=== PATIENT | male | born 1965 ===

== ENCOUNTER → 2023-10-18 | Outpatient (CLI) | payer SELFPAY | LOC: LAB 11:32 → LAB SHORT 11:32 | DX: R30.0 Dysuria (principal) | CPT/HCPCS: 87086 ==

== ENCOUNTER 2025-02-20 01:34 | Day surgery (SDC) | payer OTHER ==
[2025-02-20] MEDS ORDERED: Lidocaine HCl 4% Cream 5 GM ONE (08:14)
== END 2025-02-20 23:00 | disposition home or self-care (01) ==
LOC: WOUND 01:34
DX: E11.621 Type 2 diabetes mellitus with foot ulcer (principal); L97.515 Non-pressure chronic ulcer of other part of right foot with muscle involvement without evidence of necrosis; L97.525 Non-pressure chronic ulcer of other part of left foot with muscle involvement without evidence of necrosis; E11.40 Type 2 diabetes mellitus with diabetic neuropathy, unspecified; E11.51 Type 2 diabetes mellitus with diabetic peripheral angiopathy without gangrene; I87.2 Venous insufficiency (chronic) (peripheral); D58.9 Hereditary hemolytic anemia, unspecified; Z79.4 Long term (current) use of insulin; Z79.84 Long term (current) use of oral hypoglycemic drugs; Z85.038 Personal history of other malignant neoplasm of large intestine; Z93.2 Ileostomy status
CPT/HCPCS: A9270; G0463

== ENCOUNTER 2025-02-25 00:21 | Day surgery (SDC) | payer OTHER ==
[2025-02-25] MEDS ORDERED: Lidocaine HCl 4% Cream 5 GM ONE (08:56)
== END 2025-02-25 23:00 | disposition home or self-care (01) ==
LOC: WOUND 00:21
DX: E11.621 Type 2 diabetes mellitus with foot ulcer (principal); L97.415 Non-pressure chronic ulcer of right heel and midfoot with muscle involvement without evidence of necrosis; L97.525 Non-pressure chronic ulcer of other part of left foot with muscle involvement without evidence of necrosis; E11.40 Type 2 diabetes mellitus with diabetic neuropathy, unspecified; Z93.2 Ileostomy status
CPT/HCPCS: A9270; G0463

== ENCOUNTER 2025-03-04 03:19 | Day surgery (SDC) | payer OTHER ==
[2025-03-04] MEDS ORDERED: Lidocaine HCl 4% Cream 5 GM ONE (13:18)
== END 2025-03-04 23:00 | disposition home or self-care (01) ==
LOC: WOUND 03:19
DX: E11.621 Type 2 diabetes mellitus with foot ulcer (principal); L97.415 Non-pressure chronic ulcer of right heel and midfoot with muscle involvement without evidence of necrosis; L97.525 Non-pressure chronic ulcer of other part of left foot with muscle involvement without evidence of necrosis; E11.40 Type 2 diabetes mellitus with diabetic neuropathy, unspecified; Z93.2 Ileostomy status; Z85.038 Personal history of other malignant neoplasm of large intestine
CPT/HCPCS: A9270

== ENCOUNTER 2025-03-11 00:46 | Day surgery (SDC) | payer OTHER ==
[2025-03-11] MEDS ORDERED: Lidocaine HCl 4% Cream 5 GM ONE (12:59)
== END 2025-03-11 23:00 | disposition home or self-care (01) ==
LOC: WOUND 00:46
DX: E11.621 Type 2 diabetes mellitus with foot ulcer (principal); E11.40 Type 2 diabetes mellitus with diabetic neuropathy, unspecified; L97.413 Non-pressure chronic ulcer of right heel and midfoot with necrosis of muscle; L97.513 Non-pressure chronic ulcer of other part of right foot with necrosis of muscle; L97.522 Non-pressure chronic ulcer of other part of left foot with fat layer exposed; Z93.2 Ileostomy status
CPT/HCPCS: A9270

== ENCOUNTER 2025-03-18 01:54 | Day surgery (SDC) | payer OTHER ==
[2025-03-18] MEDS ORDERED: Lidocaine HCl 4% Cream 5 GM ONE (14:34)
== END 2025-03-18 23:00 | disposition home or self-care (01) ==
LOC: WOUND 01:54
DX: E11.621 Type 2 diabetes mellitus with foot ulcer (principal); L97.515 Non-pressure chronic ulcer of other part of right foot with muscle involvement without evidence of necrosis; L97.525 Non-pressure chronic ulcer of other part of left foot with muscle involvement without evidence of necrosis; E11.40 Type 2 diabetes mellitus with diabetic neuropathy, unspecified
CPT/HCPCS: A9270; G0463

== ENCOUNTER 2025-04-06 00:43 | Day surgery (SDC) | payer OTHER ==
[2025-04-06] MEDS ORDERED: Lidocaine HCl 4% Cream 5 GM ONE (13:36)
== END 2025-04-06 23:00 | disposition home or self-care (01) ==
LOC: WOUND 00:43
DX: E11.621 Type 2 diabetes mellitus with foot ulcer (principal); L97.525 Non-pressure chronic ulcer of other part of left foot with muscle involvement without evidence of necrosis; L97.412 Non-pressure chronic ulcer of right heel and midfoot with fat layer exposed; E11.40 Type 2 diabetes mellitus with diabetic neuropathy, unspecified; Z85.038 Personal history of other malignant neoplasm of large intestine; Z93.2 Ileostomy status
CPT/HCPCS: A9270

== ENCOUNTER 2025-04-16 02:11 | Day surgery (SDC) | payer OTHER ==
[2025-04-16] MEDS ORDERED: Lidocaine HCl 4% Cream 5 GM ONE (12:49)
== END 2025-04-16 23:00 | disposition home or self-care (01) ==
LOC: WOUND 02:11
DX: E11.621 Type 2 diabetes mellitus with foot ulcer (principal); L97.512 Non-pressure chronic ulcer of other part of right foot with fat layer exposed; L97.523 Non-pressure chronic ulcer of other part of left foot with necrosis of muscle; Z93.2 Ileostomy status
CPT/HCPCS: A9270

== ENCOUNTER → 2025-04-21 | Outpatient (CLI) | payer OTHER | LOC: LAB SHORT 17:51 → LAB 17:51 | DX: N39.0 Urinary tract infection, site not specified (principal) | CPT/HCPCS: 87077; 87086; 87186 ==

== ENCOUNTER 2025-04-23 04:25 | Day surgery (SDC) | payer OTHER ==
[2025-04-23] MEDS ORDERED: Lidocaine HCl 4% Cream 5 GM ONE (13:00)
== END 2025-04-23 23:00 | disposition home or self-care (01) ==
LOC: WOUND 04:25
DX: E11.621 Type 2 diabetes mellitus with foot ulcer (principal); L97.412 Non-pressure chronic ulcer of right heel and midfoot with fat layer exposed; L97.525 Non-pressure chronic ulcer of other part of left foot with muscle involvement without evidence of necrosis; E11.40 Type 2 diabetes mellitus with diabetic neuropathy, unspecified; Z85.038 Personal history of other malignant neoplasm of large intestine; Z93.2 Ileostomy status
CPT/HCPCS: A9270